=== PATIENT | male | born 1980 | race Caucasian/White ===

== ENCOUNTER 2018-06-30 18:17 | Outpatient (CLI) | payer OTHER | END 2018-06-30 18:18 | disposition critical access hospital (66) | LOC: EMS 18:17 | PROVIDERS: ATTEND Surgery | DX: R07.9 Chest pain, unspecified (principal); R10.9 Unspecified abdominal pain | CPT/HCPCS: A0425; A0429 ==

== ENCOUNTER 2018-06-30 18:51 | Emergency (ER) | payer OTHER ==
--- NOTE | 2018-06-30 20:07 | ED Physician Documentation ---
PD HPI ABD PAIN - Stated complaint Stated Complaint: ABD PAIN - Chief complaint Chief Complaint: Abd Pain - History obtained from History obtained from: Patient PD PAST MEDICAL HISTORY - Past Medical History Past Medical History: No Cardiovascular: None Respiratory: None Neuro: None Endocrine/Autoimmune: None GI: None : None HEENT: None Psych: None Musculoskeletal: None Derm: None - Past Surgical History Past Surgical History: Yes General: Cholecystectomy - Allergies Allergies/Adverse Reactions: Allergies Allergy/AdvReac Type Severity Reaction Status Date / Time No Known Drug Allergies Allergy Verified 06/30/18 19:03 - Social History Does the pt smoke?: Yes Smoking Status: Current every day smoker Does the pt drink ETOH?: No Does the pt have substance abuse?: Yes Substance Use and Type: Marijuana - Immunizations Immunizations are current?: No - POLST Patient has POLST: No Results - Vitals Vitals: Vital Signs - 24 hr 06/30/18 06/30/18 06/30/18 18:53 19:31 19:40 Temperature 37.0 C Heart Rate 75 52 L 60 Respiratory 16 17 16 Rate Blood Pressure 149/106 H O2 Saturation 98 96 100 Oxygen O2 Source Room air PD MEDICAL DECISION MAKING - Sepsis Event Vital Signs: Vital Signs - 24 hr 06/30/18 06/30/18 06/30/18 18:53 19:31 19:40 Temperature 37.0 C Heart Rate 75 52 L 60 Respiratory 16 17 16 Rate Blood Pressure 149/106 H O2 Saturation 98 96 100 Oxygen O2 Source Room air
--- NOTE | 2018-06-30 20:26 | ED Physician Documentation ---
PD HPI ABD PAIN - Stated complaint Stated Complaint: ABD PAIN - Chief complaint Chief Complaint: Abd Pain - History obtained from History obtained from: Patient - History of Present Illness Timing - onset: How many days ago (2-3) Timing - duration: Days Timing - details: Abrupt onset, Intermittant, Waxing and waning Pain level now: 5 Quality: Cramping, Pain Location: All over / everywhere Improved by: Other (marijuana had been providing relief until tonight) Worsened by: Other (no exacerbating factors) Associated symptoms: Nausea, Vomiting, Diarrhea. No: Fever Similar symptoms before: Has not had sx before Recently seen: Not recently seen - Additional information Additional information: Patient states my coworkers got sick with a stomach bug. Patient thinks he now has caught this illness. Patient complains of 2 to 3 days of nausea, vomiting, abdominal pain. He had been using marijuana for the pain and nausea with relief until tonight, when it is no longer effective. Patient says he is hyperventilating, and has lots of tingling everywhere. Complains of diarrhea. Review of Systems Constitutional: reports: Reviewed and negative Cardiac: reports: Reviewed and negative Respiratory: reports: Reviewed and negative GI: reports: Abdominal Pain, Nausea, Vomiting, Diarrhea : reports: Frequency. denies: Dysuria Psychiatric: reports: Anxiety PD PAST MEDICAL HISTORY - Past Medical History Past Medical History: No Cardiovascular: None Respiratory: None Neuro: None Endocrine/Autoimmune: None GI: None : None HEENT: None Psych: None Musculoskeletal: None Derm: None - Past Surgical History Past Surgical History: Yes General: Cholecystectomy - Present Medications Home Medications: Ambulatory Orders Medication Instructions Recorded Confirmed LORazepam [Ativan] 0.5 mg PO Q6H PRN #10 tablet 06/30/18 Ondansetron Odt [Zofran] 4 mg TL Q6H PRN #10 tablet 06/30/18 - Allergies Allergies/Adverse Reactions: Allergies Allergy/AdvReac Type Severity Reaction Status Date / Time No Known Drug Allergies Allergy Verified 06/30/18 19:03 - Social History Does the pt smoke?: Yes Smoking Status: Current every day smoker Does the pt drink ETOH?: No Does the pt have substance abuse?: Yes Substance Use and Type: Marijuana - Immunizations Immunizations are current?: No - POLST Patient has POLST: No PD ED PE NORMAL - Vitals Vital signs reviewed: Yes - General General: Alert and oriented X 3, Well developed/nourished, Other (anxious, verbose. becomes increasingly visibly anxious as he describes his symptoms, calms when distracted) - HEENT HEENT: Moist mucous membranes - Cardiac Cardiac: RRR, No murmur - Respiratory Respiratory: No respiratory distress, Clear bilaterally - Abdomen Abdomen: Soft, Non tender - Derm Derm: Normal color, Warm and dry - Neuro Neuro: Alert and oriented X 3 Results - Vitals Vitals: Oxygen O2 Source Room air - Labs Labs: Laboratory Tests 06/30/18 06/30/18 20:43 20:43 WBC 9.2 RBC 5.28 Hgb 15.3 Hct 43.7 MCV 82.8 MCH 29.1 MCHC 35.1 RDW 13.5 Plt Count 364 MPV 7.8 Neut # (Auto) 6.9 H Lymph # (Auto) 1.6 Hubbard # (Auto) 0.7 Eos # (Auto) 0.0 Baso # (Auto) 0.0 Absolute Nucleated RBC 0.01 Nucleated RBC % 0.1 Sodium 137 Potassium 3.2 L Chloride 102 Carbon Dioxide 21 Anion Gap 14.0 H BUN 21 H Creatinine 1.1 Estimated GFR (MDRD) 76 L Glucose 143 H Calcium 9.7 Total Bilirubin 1.2 H AST 33 ALT 27 Alkaline Phosphatase 57 Total Protein 8.7 H Albumin 4.7 Globulin 4.0 Albumin/Globulin Ratio 1.2 Lipase 28 PD MEDICAL DECISION MAKING - ED course Complexity details: reviewed results, re-evaluated patient, considered differential, d/w patient ED course: declined analgesics during ED stay, was mostly needing control of nausea. after IV fluids, ativan, and zofran x 2 doses, he reported adequate relief and was able to tolerate liquids, was comfortable with discharge home - Sepsis Event Vital Signs: Oxygen O2 Source Room air Departure - Departure Disposition: 01 Home, Self Care Clinical Impression: Colitis Condition: Good Instructions: ED Diet Vomiting Diarrhea, ED Nausea Vomiting Follow-Up: [facility] [Provider Group] [facility] [Provider Group] Prescriptions: LORazepam [Ativan] 0.5 mg PO Q6H PRN #10 tablet PRN Reason: Anxiety Ondansetron Odt [Zofran] 4 mg TL Q6H PRN #10 tablet PRN Reason: Nausea / Vomiting Discharge Date/Time: 06/30/18 23:53
[2018-06-30] MEDS ORDERED: LORazepam 2 MG/ML VIAL IVP STA (20:40)
[2018-06-30] MEDS ORDERED: ONDANSETRON 4 MG/2 ML VIAL IVP STA ×2 (20:40→22:32)
[2018-06-30] MEDS ORDERED: SODIUM CHLORIDE 0.9% 1,000 ML IV STA ×2 (20:40→21:23)
[2018-06-30] MEDS ORDERED: IOPAMIDOL-300 100 ML VIAL ONE (20:48)
[2018-06-30 21:02] LABS: ALBUMIN 4.7 g/dL (3.2-5.5); ALBUMIN/GLOBULIN RATIO 1.2 (1.0-2.2); BASOPHILS % (AUTO) 0.2 %; BILIRUBIN,TOTAL 1.2 mg/dL (0.2-1.0); CALCIUM 9.7 mg/dL (8.5-10.3); CREATININE 1.1 mg/dL (0.6-1.2); HGB - HEMOGLOBIN 15.3 g/dL (14.0-18.0); LYMPHOCYTES # (AUTO) 1.6 10^3/uL (1.5-3.5); LYMPHOCYTES % (AUTO) 17.8 %; MEAN CORPUSCULAR HEMOGLOBIN 29.1 pg (27.0-31.0); MEAN CORPUSCULAR HGB CONC 35.1 g/dL (32.0-36.0); MEAN CORPUSCULAR VOLUME 82.8 fL (80.0-94.0); MEAN PLATELET VOLUME 7.8 fL (7.4-11.4); MONOCYTES # (AUTO) 0.7 10^3/uL (0.0-1.0); MONOCYTES % (AUTO) 7.2 %; NEUTROPHILS # (AUTO) 6.9 10^3/uL (1.5-6.6); NEUTROPHILS % (AUTO) 74.8 %; PLT - PLATELET COUNT 364 10^3/uL (130-450); RED BLOOD COUNT 5.28 10^6/uL (4.70-6.10); RED CELL DISTRIBUTION WIDTH 13.5 % (12.0-15.0); TOTAL PROTEIN 8.7 g/dL (6.7-8.2); WHITE BLOOD COUNT 9.2 x10^3/uL (4.8-10.8)
[2018-06-30] MEDS ORDERED: IOPAMIDOL-300 100 ML VIAL IVP ONE (21:17)
--- NOTE | 2018-06-30 21:34 | CT Report ---
Reason: RLQ pain Procedure Date: 06/30/2018 Accession Number: [id number] / [id number] Procedure: CT - Abdomen/Pelvis W/ CPT Code: FULL RESULT: EXAM: CT ABDOMEN AND PELVIS EXAM DATE: 06/30/2018 09:23 PM. CLINICAL HISTORY: RLQ pain. COMPARISONS: None. TECHNIQUE: Routine helical CT imaging was performed through the abdomen and pelvis. IV contrast: ISOVUE 300 100mL. Enteric contrast: No. Reconstructions: Coronal and sagittal. In accordance with CT protocol optimization, one or more of the following dose reduction techniques were utilized for this exam: automated exposure control, adjustment of mA and/or KV based on patient size, or use of iterative reconstructive technique. FINDINGS: Lung Bases: Unremarkable. Liver: Normal. No masses. Gallbladder/Bile Ducts: The gallbladder is surgically absent. Spleen: Normal. Pancreas: Normal. Adrenal Glands: Normal. Kidneys: There is a left renal cyst. There is no renal mass or hydronephrosis. Peritoneal Cavity/Bowel: The colon is completely decompressed. There are increased vessels around the colon raising the possibility of colitis. No pneumatosis or free air. The appendix appears normal. The appendix is well visualized and normal. Pelvic Organs: Urinary bladder is partially fluid-filled and otherwise unremarkable. Vasculature: No aneurysms or other significant abnormality. Bones: No significant abnormality. Other: None. IMPRESSION: 1. Possible acute colitis. 2. Normal appendix. 3. No other localizing abnormality or significant CT finding. [facility]
[2018-06-30 22:06] VITALS: BP 124/74
[2018-06-30] MEDS ORDERED: KETOROLAC 60 MG/2 ML VIAL IVP STA (22:32)
[2018-06-30] MEDS ORDERED: POTASSIUM BICARB 25 MEQ TABLET PO STA (23:31)
[2018-06-30] MEDS ORDERED: ONDANSETRON ODT 4 MG Prepack 2 TL STA (23:31)
== END 2018-06-30 23:53 | disposition home or self-care (01) ==
LOC: ED 18:51
DX: K52.9 Noninfective gastroenteritis and colitis, unspecified (principal); R11.2 Nausea with vomiting, unspecified; F41.9 Anxiety disorder, unspecified; N28.1 Cyst of kidney, acquired; F17.200 Nicotine dependence, unspecified, uncomplicated
CPT/HCPCS: 74177; 80053; 83690; 85025; 96361; 96374; 96375; 96376; 99283; 99284; A9270; J2060; Q9967; 36415